=== PATIENT | male | born 1980 | race Two or more races ===

== ENCOUNTER 2022-08-12 13:01 | Emergency (ER) | payer MEDICAID ==
[~2022-08-12] VITALS: Ht 172.7 cm; Wt 114.5 kg
[2022-08-12] MEDS ORDERED: AMLO10TA55 PO (13:14)
[2022-08-12] MEDS ORDERED: LISI-893 PO (13:14)
[2022-08-12] MEDS ORDERED: LEVO25TA9 PO (13:14)
[2022-08-12] MEDS ORDERED: METF-1211 PO (14:00)
[2022-08-12] MEDS ORDERED: NAPR500T6 PO (14:59)
[2022-08-12] MEDS ORDERED: HYDR-4723 PO (14:59)
[2022-08-12] MEDS ORDERED: BACL10TA PO (14:59)
[2022-08-12 15:17] VITALS: BP 143/94
== END 2022-08-12 15:26 | disposition home or self-care (01) ==
LOC: EMS 13:07
DX: S39.012A Strain of muscle, fascia and tendon of lower back, initial encounter (principal); E03.9 Hypothyroidism, unspecified; F12.90 Cannabis use, unspecified, uncomplicated; I10 Essential (primary) hypertension; X58.XXXA Exposure to other specified factors, initial encounter; Y93.89 Activity, other specified; Y92.89 Other specified places as the place of occurrence of the external cause; Y99.8 Other external cause status
CPT/HCPCS: 99283; Z7502

== ENCOUNTER 2022-08-17 21:34 | Emergency (ER) | payer MEDICAID ==
[~2022-08-17] VITALS: Ht 172.7 cm; Wt 114.5 kg
[~2022-08-17 21:34] MED LIST: AMLO10TA55 PO; BACL10TA PO; HYDR-4723 PO; LEVO25TA9 PO; LISI-893 PO; METF-1211 PO; NAPR500T6 PO
[2022-08-17 22:21] VITALS: BP 124/69
[2022-08-17] MEDS ORDERED: LIDO700A15 TP (22:33)
[2022-08-17] MEDS ORDERED: ACET-66 PO (22:33)
== END 2022-08-17 22:30 | disposition home or self-care (01) ==
LOC: EMS 21:34
DX: K83.09 Other cholangitis (principal); I10 Essential (primary) hypertension; E03.9 Hypothyroidism, unspecified; F12.90 Cannabis use, unspecified, uncomplicated; Z76.0 Encounter for issue of repeat prescription
CPT/HCPCS: 99282; Z7502

== ENCOUNTER 2023-01-29 12:50 | Emergency (ER) | payer MEDICAID ==
[~2023-01-29] VITALS: Ht 172.7 cm; Wt 106.8 kg
[~2023-01-29 12:50] MED LIST changes: -BACL10TA PO; +DIPH50 PO; -HYDR-4723 PO; -NAPR500T6 PO
[2023-01-29 12:53] VITALS: BP 128/87
== END 2023-01-29 15:09 | disposition left against medical advice (07) ==
LOC: EMS 13:08
DX: Z53.21 Procedure and treatment not carried out due to patient leaving prior to being seen by health care provider (principal)
CPT/HCPCS: 99281; Z7502

== ENCOUNTER 2023-02-02 09:23 | Emergency (ER) | payer MEDICAID ==
[~2023-02-02] VITALS: Ht 172.7 cm; Wt 102.0 kg
[~2023-02-02 09:23] MED LIST changes: -AMLO10TA55 PO; -DIPH50 PO; -METF-1211 PO
[2023-02-02] MEDS ORDERED: AMLO10TA55 PO (09:40)
[2023-02-02] MEDS ORDERED: IBUP-1492 PO (11:39)
[2023-02-02 11:41] VITALS: BP 144/73
== END 2023-02-02 11:45 | disposition home or self-care (01) ==
LOC: EMS 09:23
DX: M25.561 Pain in right knee (principal); I10 Essential (primary) hypertension; E03.9 Hypothyroidism, unspecified; F12.90 Cannabis use, unspecified, uncomplicated
CPT/HCPCS: 99283